=== PATIENT | female | born 1970 | race Caucasian/White ===

== ENCOUNTER 2022-09-16 14:00 | Emergency (ER) | payer BC, SELFPAY | END 2022-09-16 14:25 | disposition left against medical advice (07) | LOC: MADERS 14:00 | DX: Z53.29 Procedure and treatment not carried out because of patient's decision for other reasons (principal) | CPT/HCPCS: 99283 ==

== ENCOUNTER 2023-02-07 23:56 | Emergency (ER) | payer BC, OTHER ==
[2023-02-08] MEDS ORDERED: Ondansetron ODT 4 MG TAB ONE (01:03)
[2023-02-08] MEDS ORDERED: HYDROcodone/Acetaminophen 10/325 mg Tablet ONE (02:28)
== END 2023-02-08 02:47 | disposition home or self-care (01) ==
LOC: MADERS 23:56
DX: S82.62XA Displaced fracture of lateral malleolus of left fibula, initial encounter for closed fracture (principal); F17.290 Nicotine dependence, other tobacco product, uncomplicated; X58.XXXA Exposure to other specified factors, initial encounter
CPT/HCPCS: Q0162

== ENCOUNTER 2023-11-29 18:10 | Emergency (ER) | payer OTHER ==
[2023-11-29] MEDS ORDERED: Dexamethasone 10 MG/ML VIAL ONE (18:47)
[2023-11-29 19:00] LABS: #Basophils 0.1 thou/uL (0.0-0.2); #Eosinphils 0.2 thou/uL (0.0-0.7); #Lymphocytes 2.1 thou/uL (1.20-3.40); #Monocytes 0.5 thou/uL (0.11-0.59); #Neutrophils 6.2 thou/uL (1.40-6.50); %Basophils 1.3 % (0.0-1.0); %Eosinophils 2.3 % (0.0-10.0); %Lymphocytes 22.5 % (21.0-51.0); %Monocytes 5.3 % (0.0-10.0); %Neutrophils 68.6 % (42.0-75.0); Hematocrit 45.7 % (36.0-47.0); Hemoglobin 14.6 g/dL (12.0-16.0); Mean Corpuscular Hemoglobin 26.1 pg (27.0-31.0); Mean Corpuscular Volume 81.7 fl (78.0-98.0); Mean Platelet Volume 6.6 fL (7.4-10.4); Platelet Count 253 10x3/uL (130-400); RBC Distribution Width 12.2 % (11.5-14.5); Red Blood Cell (RBC) Count 5.59 mill/uL (4.20-5.40); White Blood Cell (WBC) Count 9.1 10x3/uL (4.8-10.8)
[2023-11-29 19:18] LABS: ALT (SGPT) 19 U/L (8-55); AST (SGOT) 18 U/L (5-34); Alkaline Phosphatase 64 U/L (40-110); Anion Gap 15 mmol/L (10-20); BUN (Urea Nitrogen) 10 mg/dL (9.8-20.1); Calc. Creatinine Clearance 0 mL/min (70-130); Calcium 9.5 mg/dL (7.8-10.44); Carbon Dioxide 23 mmol/L (22-29); Chloride 108 mmol/L (98-107); Estimated GFR 72; Glucose 75 mg/dL (70-105); Potassium 3.7 mmol/L (3.5-5.1); Sodium 142 mmol/L (136-145)
[2023-11-29 19:29] LABS: Amphetamine Not Detected (NotDetected); Barbiturates Screen Not Detected (NotDetected); Benzodiazepine Screen Detected (NotDetected); Cocaine Metabolite Screen Not Detected (NotDetected); Methadone Not Detected (NotDetected); Methamphetamine Not Detected (NotDetected); Opiate Screen Not Detected (NotDetected); Oxycodone Screen Not Detected (NotDetected); Phencyclidine (PCP) Not Detected (NotDetected); THC/Cannabinoid Screen Not Detected (NotDetected); Tricyclic Screen Not Detected (NotDetected)
== END 2023-11-29 19:35 | disposition home or self-care (01) ==
LOC: MADERS 18:10
DX: G62.9 Polyneuropathy, unspecified (principal); M25.542 Pain in joints of left hand; M25.541 Pain in joints of right hand
CPT/HCPCS: 36415; 80053; 80306; 83735; 85025; 86140; 96372; J1100

== ENCOUNTER 2024-01-03 19:00 | Emergency (ER) | payer OTHER | END 2024-01-03 20:10 | disposition home or self-care (01) | LOC: MADERS 19:00 | DX: S60.052A Contusion of left little finger without damage to nail, initial encounter (principal); W20.8XXA Other cause of strike by thrown, projected or falling object, initial encounter | CPT/HCPCS: 99283 ==

== ENCOUNTER 2024-01-26 00:59 | Emergency (ER) | payer OTHER ==
[2024-01-26 01:30] LABS: Bilirubin Negative (Negative); Blood, Urine Large (Negative); Clarity Hazy (Clear); Glucose, Urine (Dipstick) Negative (Negative); Ketone, Urine Negative (Negative); Leukocyte Moderate (Negative); Nitrite Negative (Negative); Protein, Urine (Dipstick) 30 mg/dL (Neg-Trace); Urobilinogen 0.2 mg/dL (Less than 2)
[2024-01-26 01:31] LABS: Bacteria/HPF Rare-Few HPF (None Seen); CAUTI Indications for Culture Acute Hematuria; RBC/HPF Greater than 50 HPF (0-3); WBC/HPF 21-50 HPF (0-3)
[2024-01-26 01:32] LABS: Urine Culture Reflex Yes Yes
[2024-01-26] MEDS ORDERED: Sulfameth/Trimethoprim DS 800-160mg TAB ONE (01:35)
[2024-01-26] MEDS ORDERED: Phenazopyridine HCl 95 MG TAB ONE (01:35)
[2024-01-26] MEDS ORDERED: Ondansetron ODT 4 MG TAB ONE (01:38)
== END 2024-01-26 02:03 | disposition home or self-care (01) ==
LOC: MADERS 00:59
DX: N39.0 Urinary tract infection, site not specified (principal)
CPT/HCPCS: 81001; 87077; 87086; 87186; 99283; Q0162

== ENCOUNTER 2024-02-03 22:47 | Emergency (ER) | payer OTHER ==
[2024-02-03] MEDS ORDERED: Ibuprofen 800 MG TAB ONE (23:20)
[2024-02-03] MEDS ORDERED: predniSONE 20 MG TAB ONE (23:20)
[2024-02-03] MEDS ORDERED: Amoxicillin/Potassium Clav 875 MG TAB ONE (23:20)
[2024-02-03] MEDS ORDERED: Ondansetron ODT 4 MG TAB ONE (23:20)
[2024-02-03] MEDS ORDERED: HYDROcodone/Acetaminophen 5/325 mg Tablet ONE (23:51)
== END 2024-02-03 23:59 | disposition home or self-care (01) ==
LOC: MADERS 22:47
DX: H66.91 Otitis media, unspecified, right ear (principal); J06.9 Acute upper respiratory infection, unspecified; R11.0 Nausea
CPT/HCPCS: 87428; 99283; J7512; Q0162